=== PATIENT | female | born 1995 | race Caucasian/White ===

== ENCOUNTER 2023-05-22 09:47 | Emergency (ER) | payer MEDICAID ==
[~2023-05-22] VITALS: Ht 157.5 cm; Wt 91.6 kg
[2023-05-22 10:10] VITALS: BP 115/65; PULSE 73; RESP 18; TEMP 98; O2SAT 99
[2023-05-22] MEDS ORDERED: IBUP-1842 PO (13:56)
[2023-05-22] MEDS ORDERED: ACET-10509 PO (13:56)
[2023-05-22] MEDS ORDERED: ONDA-188 SL (13:56)
[2023-05-22] MEDS ORDERED: KETOROLAC 30 MG/ML VIAL IM ONE (14:05)
--- NOTE | 2023-05-22 14:17 | NUR ---
Patient discharged with v/s stable. Written and verbal after care instructions given and explained. Patient alert, oriented and verbalized understanding of instructions. Ambulatory with steady gait. All questions addressed prior to discharge. ID band removed. Patient advised to follow up with PMD. Rx of ibuprofen, tylenol, zofran given. Patient educated on indication of medication including possible reaction and side effects. Opportunity to ask questions provided and answered.
== END 2023-05-22 14:17 | disposition home or self-care (01) ==
LOC: MED 09:47
DX: S06.0X0A Concussion without loss of consciousness, initial encounter (principal); S20.20XA Contusion of thorax, unspecified, initial encounter; S00.83XA Contusion of other part of head, initial encounter; H92.01 Otalgia, right ear; M54.50 Low back pain, unspecified; Z79.899 Other long term (current) drug therapy; Z98.890 Other specified postprocedural states; V89.2XXA Person injured in unspecified motor-vehicle accident, traffic, initial encounter; Y93.89 Activity, other specified; Y92.89 Other specified places as the place of occurrence of the external cause; Y99.8 Other external cause status
CPT/HCPCS: 71101; 81025; 96372; 99283; J1885

== ENCOUNTER 2024-06-26 05:54 | Emergency (ER) | payer MEDICAID, OTHER ==
[~2024-06-26] VITALS: Ht 162.6 cm; Wt 84.8 kg
[~2024-06-26 05:54] MED LIST: ACET500T99 PO; IBUP-1842 PO; ONDA-188 SL
[2024-06-26 05:55] VITALS: BP 107/63; PULSE 72; RESP 16; TEMP 97.9; O2SAT 98
[2024-06-26] MEDS: NACL 0.9% 1,000 ML IV SCH (06:40)
[2024-06-26] MEDS ORDERED: cefTRIAXone 1,000 MG VIAL ONE (06:44)
[2024-06-26 06:47] LABS: BASOPHILS # (AUTO) 0.1 K/uL (0.00-0.22); BASOPHILS % (AUTO) 0.6 % (0.0-2.0); EOSINOPHILS # (AUTO) 0.2 K/uL (0-0.4); EOSINOPHILS % (AUTO) 1.7 % (0.0-4.0); HEMATOCRIT 39.1 % (36-48); HEMOGLOBIN 13.1 g/dL (12.0-16.0); LYMPHOCYTES # (AUTO) 3.3 K/uL (2.5-16.5); LYMPHOCYTES % (AUTO) 35.1 % (20.5-51.1); MEAN CORPUSCULAR HEMOGLOBIN 30 pg (27-31); MEAN CORPUSCULAR HGB CONC 33 g/dL (33-37); MONOCYTES # (AUTO) 0.5 K/uL (0.8-1.0); MONOCYTES % (AUTO) 5.9 % (1.7-9.3); NEUTROPHILS # (AUTO) 5.3 K/uL (1.8-7.7); NEUTROPHILS % (AUTO) 56.7 % (42.2-75.2); PLATELET COUNT (AUTO) 205 K/uL (140-450); RED BLOOD CELL COUNT(AUTO) 4.34 MIL/uL (4.20-5.40); RED CELL DISTRIBUTION WIDTH 13.6 % (11.6-13.7); WHITE BLOOD COUNT (AUTO) 9.3 K/uL (4.8-10.8)
[2024-06-26] MEDS: ONDANSETRON 4 MG/2 ML VIAL IVP ONE (06:50)
[2024-06-26] MEDS: KETOROLAC 30 MG/ML VIAL IVP ONE (06:52)
[2024-06-26] MEDS: LOPERAMIDE 2 MG CAP PO ONE (06:54)
[2024-06-26] MEDS: cefTRIAXone 1,000 MG in DEXT 5% MINI-BAG PLUS 50 ML IV ONE (06:54)
[2024-06-26 07:07] LABS: APPEARANCE,URINE CLEAR (CLEAR); BILIRUBIN,URINE NEGATIVE (NEGATIVE); BLOOD, URINE NEGATIVE (NEGATIVE); COLOR,URINE YELLOW (YELLOW); LEUKOCYTE ESTERASE ,URINE NEGATIVE (NEGATIVE); NITRITE, URINE POSITIVE (NEGATIVE); PH,URINE 6.5 (5.0-9.0); PROTEIN,URINE NEGATIVE (NEGATIVE); UGLUCOSE NEGATIVE (NEGATIVE)
[2024-06-26 07:10] LABS: ANION GAP 12.9 (8-16); CALCIUM 8.4 mg/dL (8.5-10.1); CARBON DIOXIDE 24.7 mmol/L (21-32); CREATININE 0.6 mg/dL (0.6-1.3); POTASSIUM 3.6 mmol/L (3.5-5.1)
[2024-06-26 07:15] LABS: ALBUMIN 3.4 g/dL (3.4-5.0); TOTAL BILIRUBIN 0.2 mg/dL (0.0-1.0); TOTAL PROTEIN, SERUM 6.9 g/dL (6.4-8.2)
[2024-06-26 07:16] LABS: BACTERIA,URINE >30 (MANY) /HPF (None Seen); MUCUS,URINE 2+ /LPF (None Seen); SQUAMOUS EPITHELIAL CELL,UR 4-10 (MOD) /LPF (0-3 (FEW))
[2024-06-26 07:18] LABS: LACTIC ACID 0.6 mmol/L (0.4-2.0)
[2024-06-26] MEDS ORDERED: NAPR-1704 PO (07:30)
[2024-06-26] MEDS ORDERED: ONDA-188 PO (07:30)
[2024-06-26] MEDS ORDERED: CEPH-588 PO (07:30)
[2024-06-26] MEDS ORDERED: LOPE-289 PO (07:30)
[2024-06-26 08:14] VITALS: BP 115/61; PULSE 81; RESP 16; TEMP 98.3; O2SAT 98
== END 2024-06-26 08:14 | disposition home or self-care (01) ==
LOC: MED 05:54
DX: N12 Tubulo-interstitial nephritis, not specified as acute or chronic (principal); F17.200 Nicotine dependence, unspecified, uncomplicated; R51.9 Headache, unspecified; Z20.822 Contact with and (suspected) exposure to COVID-19; Z79.1 Long term (current) use of non-steroidal anti-inflammatories (NSAID); Z79.899 Other long term (current) drug therapy
CPT/HCPCS: 36415; 80048; 80076; 81001; 81025; 83605; 85025; 87040; 87086; 87426; 96365; 96375; 99284; J0696; J1885; J2405; 87186